=== PATIENT | male | born 1955 | race Caucasian/White ===

== ENCOUNTER 2022-10-02 10:44 | Emergency (ER) | payer OTHER, BC ==
[2022-10-02 10:53] VITALS: BP 119/78; PULSE 99; RESP 18; TEMP 97.4; BMI 26.6
[2022-10-02] MEDS ORDERED: AMPICILLIN NA/SULBACTAM NA 3 GM in SODIUM CHLORIDE 100 ML IVPB ONE (13:17)
[2022-10-02] MEDS ORDERED: DIPHTH,PERTUSS(ACELL),TET 0.5 ML DISP.SYRIN IM ONE ×2 (13:19→13:46)
[2022-10-02] MEDS ORDERED: AMPICILLIN NA/SULBACTAM NA 3 GM VIAL ONE (13:41)
[2022-10-02 14:01] LABS: BASO % 0.5 % (0-2.0); HEMATOCRIT 40.2 % (35.4-49); HEMOGLOBIN 14.2 GM/dL (11.7-16.9); LYMPH % 24.1 % (8-40); MCH 34.1 pg (25.7-33.7); MCHC 35.3 g/dl (32.0-35.9); MEAN CELL VOLUME 96.8 fl (80-96); MEAN PLT VOLUME 7.9 fl (7.5-11.1); MONO % 7.3 % (3.8-10.2); NEUT % 67.1 % (42.8-82.8); PLATELET COUNT 210 10^3/uL (134-434); RBC 4.16 M/mm3 (4.00-5.60); RDW 12.5 % (11.9-15.9); WHITE BLOOD COUNT 8.1 K/mm3 (4.0-10.0)
[2022-10-02 14:21] LABS: POTASSIUM 4.2 mmol/L (3.5-5.1)
[2022-10-02 14:25] LABS: CALCIUM 8.9 mg/dL (8.5-10.1)
[2022-10-02 14:26] LABS: BLOOD UREA NITROGEN 16.2 mg/dL (7-18); CREATININE 0.8 mg/dL (0.55-1.3)
== END 2022-10-02 15:10 | disposition home or self-care (01) ==
LOC: JERFT 10:44
PROC: 0HQFXZZ Repair Right Hand Skin, External Approach (ICD-10-PCS; principal; 2022-10-02)
PROC: 3E03329 Introduction of Other Anti-infective into Peripheral Vein, Percutaneous Approach (ICD-10-PCS; 2022-10-02)
PROC: 3E0234Z Introduction of Serum, Toxoid and Vaccine into Muscle, Percutaneous Approach (ICD-10-PCS; 2022-10-02)
DX: S62.636B Displaced fracture of distal phalanx of right little finger, initial encounter for open fracture (principal); W26.8XXA Contact with other sharp object(s), not elsewhere classified, initial encounter
CPT/HCPCS: 12002-25; 36415; 73140-TC-RT-FY; 80048; 85025; 90471; 90715; 96365; 99284-25

== ENCOUNTER 2023-02-14 04:04 | Day surgery (SDC) | payer OTHER, BC ==
[2023-02-12 12:52] VITALS: BMI 25.0
[2023-02-14 09:33] VITALS: TEMP 97.1
[2023-02-14 10:00] VITALS: BP 123/74; PULSE 79; RESP 19
== END 2023-02-14 10:05 | disposition home or self-care (01) ==
LOC: JASU-ENDO 04:04
PROVIDERS: ATTEND Internal Medicine Gastroenterology
PROC: 0DBN8ZX Excision of Sigmoid Colon, Via Natural or Artificial Opening Endoscopic, Diagnostic (ICD-10-PCS; principal; 2023-02-14 09:00)
DX: Z12.11 Encounter for screening for malignant neoplasm of colon (principal); K64.8 Other hemorrhoids; Z85.038 Personal history of other malignant neoplasm of large intestine
CPT/HCPCS: 82962